=== PATIENT | male | born 1990 ===

== ENCOUNTER 2021-12-28 13:07 | Emergency (ER) | payer MEDICAID ==
[~2021-12-28] VITALS: Ht 172.7 cm; Wt 68.2 kg
[2021-12-28 13:20] VITALS: BP 141/104
== END 2021-12-28 17:00 | disposition left against medical advice (07) ==
LOC: ER 13:08
DX: G47.00 Insomnia, unspecified (principal); Z53.21 Procedure and treatment not carried out due to patient leaving prior to being seen by health care provider